=== PATIENT | male | born 1970 | race Caucasian/White ===

== ENCOUNTER 2017-08-14 20:55 | Emergency (ER) | payer BC ==
[2017-08-14 21:00] VITALS: BP 129/74
--- NOTE | 2017-08-14 21:19 | ED Physician Documentation ---
PD HPI BACK INJURY - Stated complaint Stated Complaint: RASH - History obtained from History obtained from: Patient - History of Present Illness Location: Other (Family member with recent scabies and he has an itchy rash on the neck, anterior forearms.) Review of Systems Constitutional: reports: Reviewed and negative Cardiac: reports: Reviewed and negative Respiratory: reports: Reviewed and negative PD PAST MEDICAL HISTORY - Past Medical History Past Medical History: No - Past Surgical History Past Surgical History: No - Present Medications Home Medications: Ambulatory Orders Medication Instructions Recorded Confirmed Permethrin 5% Cream 60 gm TP ONCE #2 cream..g. 08/14/17 - Allergies Allergies/Adverse Reactions: Allergies Allergy/AdvReac Type Severity Reaction Status Date / Time atropine Allergy Unknown Verified 08/14/17 21:00 - Social History Does the pt smoke?: No Smoking Status: Never smoker Does the pt drink ETOH?: No Does the pt have substance abuse?: No - Immunizations Immunizations are current?: No - POLST Patient has POLST: No PD ED PE NORMAL - Vitals Vital signs reviewed: Yes - General General: Alert and oriented X 3, No acute distress - Derm Derm: Other (Classic burrows on the anterior forearms, couple on the low neck. He complained of something under the hairline but I did not see anything there.) - Neuro Neuro: Alert and oriented X 3, No motor deficit, Normal speech Results - Vitals Vitals: Vital Signs - 24 hr 08/14/17 20:57 Temperature 36.3 C L Heart Rate 79 Respiratory 16 Rate Blood Pressure 129/74 O2 Saturation 96 Oxygen O2 Source Room air Departure - Departure Disposition: 01 Home, Self Care Clinical Impression: Scabies Condition: Good Record reviewed to determine appropriate education?: Yes Instructions: ED Scabies Prescriptions: Permethrin 5% Cream 60 gm TP ONCE #2 cream..g.
== END 2017-08-14 21:23 | disposition home or self-care (01) ==
LOC: ED 20:55
DX: B86 Scabies (principal)
CPT/HCPCS: 99283